=== PATIENT | female | born 2000 | race Caucasian/White ===

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

== ENCOUNTER 2020-08-20 15:07 | Emergency (ER) | payer MEDICAID, SELFPAY ==
[2020-08-20 15:08] VITALS: BP 119/71; PULSE 93; PULSE 94; RESP 16; TEMP 35.6; O2SAT 97; O2SAT 98; BMI 28.2
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
--- NOTE | 2020-08-20 15:44 | ED.DEP ---
ED Disposition - Plan for ED Patient: Instructions: ED Neck Sprain or Strain, ED Finger Sprain Referrals: Jair Florence MD [Primary Care Provider] - 5-7 Days
== END 2020-08-20 16:23 | disposition home or self-care (01) ==
LOC: ED 15:40
PROVIDERS: Emergency Provider Emergency Medicine; PCP Family Medicine
DX: S16.1XXA Strain of muscle, fascia and tendon at neck level, initial encounter (principal); S63.601A Unspecified sprain of right thumb, initial encounter; V89.2XXA Person injured in unspecified motor-vehicle accident, traffic, initial encounter
CPT/HCPCS: 72040; 73130; 99282

== ENCOUNTER → 2020-10-07 07:04 | Outpatient (CLI) | payer MEDICAID, SELFPAY | PROVIDERS: PCP Family Medicine; Referring Provider Family Medicine; Visit Provider Family Medicine | DX: Z23 Encounter for immunization (principal) | CPT/HCPCS: 0031A; 91303 ==